=== PATIENT | male | born 1990 | race Caucasian/White ===

== ENCOUNTER 2018-12-17 16:04 | Emergency (ER) | payer SELFPAY ==
[~2018-12-17] VITALS: Ht 170.2 cm; Wt 75.0 kg
[2018-12-17 16:10] VITALS: BP 116/86; PULSE 86; RESP 18; Ht 170.2 cm; Wt 75.0 kg
== END 2018-12-17 16:30 | disposition left against medical advice (07) ==
LOC: E/R 16:04 → FTE 16:30
DX: Z53.21 Procedure and treatment not carried out due to patient leaving prior to being seen by health care provider (principal)